=== PATIENT | male | born 1950 | race Caucasian/White ===

== ENCOUNTER 2019-11-28 13:18 | Emergency (ER) | payer MEDICARE, SELFPAY ==
--- NOTE | ~2019-11-28 | XR_ITS ---
EXAMINATION: XR hand LT min 3V DATE: 11/28/2019 13:42 INDICATION: Left hand pain and swelling after pulling brush TECHNIQUE: Posteroanterior, oblique and lateral views of the left hand were obtained. COMPARISON: None. FINDINGS: Alignment is normal. No fracture. Polyarticular osteoarthritis, moderate severity at the triscaphe, f irst carpometacarpal and second distal interphalangeal joints, mild to moderate at the third-fifth di stal interphalangeal and third metacarpophalangeal joints and mild at the remaining interphalangeal a nd metacarpophalangeal joints. Soft tissue swelling dorsal to the mid to distal metacarpals. IMPRESSION: 1. Moderate polyarticular osteoarthritis with typical distribution. No acute osseous abnormality. Reviewed, dictated and finalized at location A. IMPRESSION: 1. Moderate polyarticular osteoarthritis with typical distribution. No acute os seous abnormality.
[2019-11-28 13:40] VITALS: BP 155/86; PULSE 114; RESP 20; TEMP 37.2; O2SAT 96
--- NOTE | 2019-11-28 13:56 | ED.SKABFB ---
HPI - Skin/Abscess/Foreign Bdy General Chief complaint: Extremity Injury, Upper Stated complaint: L/hand injury Time Seen by Provider: 11/28/19 13:37 Source: patient and RN notes reviewed Mode of arrival: ambulatory Limitations: no limitations History of Present Illness HPI narrative: Patient presents today complaining of pain and swelling to the left hand. States he used a chainsaw for many hours yesterday and believes he may have a stress fracture in his hand. Hand started swelling a few hours after he stopped his work. He does have a foreign body embedded in the skin of his fifth metacarpal, but does not believe this is contributing to his symptoms. He is up-to-date on his tetanus vaccine. Denies numbness or tingling in the hand or fingers. He currently rates his pain 03/13 and has been taking aspirin with relief. MD complaint: foreign body and other (Left hand pain) Related Data Home Medications Medication Instructions Recorded Confirmed atorvastatin 20 mg PO DAILY 11/28/19 11/28/19 Allergies Allergy/AdvReac Type Severity Reaction Status Date / Time No Known Allergies Allergy Mild Verified 11/28/19 13:44 Review of Systems Review of Systems: Narrative: CONSTITUTIONAL: Denies body aches, fever, chills, or sweats. EYES: Denies visual changes, redness, or discharge. ENT: Denies rhinorrhea, congestion, sore throat, or otalgia. CARDIOVASCULAR: Denies chest pain, palpitations, or edema. RESPIRATORY: Denies cough or dyspnea. GASTROINTESTINAL: Denies abdominal pain, nausea, vomiting, or diarrhea. GENITOURINARY: Denies dysuria or hematuria. SKIN: Denies rash, itching. + Foreign body to left hand MUSCULOSKELETAL: Denies back pain or myalgia.+ Left hand pain and swelling NEUROLOGIC: Denies headache, numbness, tingling, or weakness. PSYCH: Denies depression or anxiety. [facility] Past Medical History Medical History (Updated 11/28/19 @ 14:04 by Chasidy Morejon, EQUIPMENT SERVICE TECHNICIAN, ) Hypercholesterolemia Comments At time of signature, I have reviewed and agree with nursing past medical, surgical, social and family history unless otherwise noted. Please see nursing chart for further information. There is no relevant family history pertinent to the presenting complaint Exam Narrative: Exam Narrative: GENERAL: Well-appearing, well-nourished, and in no acute distress. HEAD: Normocephalic, atraumatic. EYES: EOMI. No redness or drainage. Conjunctivae normal. ENT: Mucous membranes pink and moist. NECK: Normal AROM. CHEST: No respiratory distress. EXTREMITIES: Left hand: Mild edema and erythema to the area of the fifth metacarpal. Small thorn is visualized just under the skin on the volar aspect of metacarpal. Tenderness to the distal half of the metacarpal. No tenderness to the finger. Full range of motion of the hand. Distal sensation intact. Capillary refill normal. Radial pulse normal. No induration or fluctuance. All other extremities grossly normal. SKIN: Warm, dry, no rash. NEURO: No focal deficits. Alert and oriented x3. Gait steady. PSYCH: Normal affect. No signs of depression or anxiety. Course Vital Signs Vital signs: Vital Signs Temperature 98.9 F 11/28/19 13:40 Pulse Rate 114 H 11/28/19 13:40 Respiratory Rate 20 11/28/19 13:40 Blood Pressure 155/86 H 11/28/19 13:40 Pulse Oximetry 96 11/28/19 13:40 Temperature 98.9 F 11/28/19 13:40 Pulse Rate 114 H 11/28/19 13:40 Respiratory Rate 20 11/28/19 13:40 Blood Pressure 155/86 H 11/28/19 13:40 Pulse Oximetry 96 11/28/19 13:40 Reviewed. Pt has been instructed to follow up with his PCP regarding his elevated blood pressure today. Procedures Foreign Body Removal Foreign Body #1: Foreign Body Removal Date: 11/28/19 Foreign Body Removal Time: 13:57 Time Out Performed: yes Site: left and hand Description of foreign body: other (splinter) Sedation/Analgesia: none Technique: manual remova
== END 2019-11-28 14:07 | disposition home or self-care (01) ==
PROVIDERS: Emergency Provider Nurse Practitioner; PCP Internal Medicine
DX: L03.114 Cellulitis of left upper limb (principal); S66.912A Strain of unspecified muscle, fascia and tendon at wrist and hand level, left hand, initial encounter; S61.442A Puncture wound with foreign body of left hand, initial encounter; W45.8XXA Other foreign body or object entering through skin, initial encounter; W29.3XXA Contact with powered garden and outdoor hand tools and machinery, initial encounter; E78.00 Pure hypercholesterolemia, unspecified
CPT/HCPCS: 73130; 99213; G0463

== ENCOUNTER 2022-03-17 12:19 | Emergency (ER) | payer MEDICARE, SELFPAY ==
[2022-03-17 12:35] VITALS: BP 162/85; PULSE 102; RESP 18; TEMP 36.6; O2SAT 97
--- NOTE | 2022-03-17 12:54 | ED.URI ---
HPI - URI/Sore Throat General Chief Complaint: Upper Respiratory Infection Stated Complaint: sorethroat Time Seen by Provider: 03/17/22 12:54 Source: patient and RN notes reviewed Mode of arrival: ambulatory Limitations: no limitations History of Present Illness HPI Narrative: 72-year-old male presents with concern for scratchy throat, cough, swollen glands. He reports chronic sinus problems. Reports increase in sinus pressure, drainage, foul taste in his mouth, foul breath. He reports a dry scratchy cough. He denies fever, bodies, chills, sweats. Reports he takes nasal spray, denies other intervention. MD elicited complaint: cough and nasal congestion Related Data Home Medications Medication Instructions Recorded Confirmed atorvastatin 20 mg tablet 20 mg PO DAILY 11/28/19 03/17/22 amlodipine 2.5 mg tablet 1 tablet DAILY 03/17/22 03/17/22 losartan 100 mg tablet 1 tablet DAILY 03/17/22 03/17/22 Allergies Allergy/AdvReac Type Severity Reaction Status Date / Time No Known Allergies Allergy Mild Verified 03/17/22 12:52 Review of Systems Review of Systems: CONSTITUTIONAL: Denies malaise, chills, sweats, or fever. EYES: Denies visual changes, redness, or discharge. ENT: Reports rhinorrhea, congestion, sinus pain, ear fullness, swollen glands, and sore throat. CARDIOVASCULAR: Denies chest pain, palpitations, or edema. RESPIRATORY: Reports dry cough. Denies dyspnea. GASTROINTESTINAL: Denies abdominal pain, nausea, vomiting, diarrhea SKIN: Denies rash or itching. MUSCULOSKELETAL: Denies myalgia. NEUROLOGIC: Reports headache. All systems reviewed & are unremarkable except as noted in HPI and below PMFSH Past Medical History Medical History (Updated 03/17/22 @ 13:06 by Grecia Beverly NP) Hypercholesterolemia Comments At time of signature, agree with nursing past medical, surgical, social and family history. There is no relevant family history pertinent to the presenting complaint Exam Narrative: GENERAL: Well-appearing, well-nourished, and in no acute distress. HEAD: Normocephalic EYES: PERRLA, conjunctivae clear ENT: Nares clear, turbinates edematous and erythematous, purulent discharge. Mucous membranes moist. TM pearly chris with dull light reflex bilaterally; no tragal tenderness. Oropharynx erythematous without lesions. Tonsils not enlarged and without exudate, no drooling, no hoarseness, no trismus, uvula midline. NECK: Supple. No lymphadenopathy CHEST: Clear to auscultation, breath sounds equal. No wheezing, rhonchi, rales, or stridor. No respiratory distress, speaks in full sentences. HEART: Regular rate and rhythm. No murmur heard. SKIN: Warm, dry, no rash. NEURO: Alert and oriented x3. PSYCH: Normal mood and affect Course Course Emergency Course: Patient is aware of diagnosis, understands and agrees to treatment plan. Anticipatory guidance given. Patient agrees to follow-up as directed and is aware of reasons to seek care at the emergency department. Portions of this record may have been created with voice recognition software Level of Care: Express Care Visit Vital Signs Vital signs: Reviewed. MDM - URI/Sore Throat MDM Narrative Medical decision making narrative: Differential diagnosis considered: Roberson virus, strep pharyngitis, allergic rhinitis, upper respiratory tract infection, sinusitis, rhinosinusitis, nasopharyngitis. viral pharyngitis, otitis media, otitis externa, pneumonia, bronchitis, viral cough syndrome, viral syndrome, and influenza. Exam findings show no acute concerns or changes; patient is non-toxic appearing and is in no distress. Patient is appropriate for outpatient treatment and follow-up. Lab Data Attestation: I reviewed the patient's lab results. Critical Care Time Critical Care Time Critical Care Time: No Discharge Plan Discharge Clinical Impression: Acute bacterial sinusitis Patient Disposition: Home, Self-Care Condition: Stable Instructions: Antibioti
== END 2022-03-17 13:12 | disposition home or self-care (01) ==
PROVIDERS: Emergency Provider Nurse Practitioner; PCP Internal Medicine
DX: J01.90 Acute sinusitis, unspecified (principal); Z20.822 Contact with and (suspected) exposure to COVID-19; E78.00 Pure hypercholesterolemia, unspecified
CPT/HCPCS: 87081; 87426; 87804; 87880; 99213; C9803; G0463

== ENCOUNTER 2022-06-05 10:02 | Emergency (ER) | payer MEDICARE, SELFPAY ==
[2022-06-05 10:12] VITALS: BP 161/83; PULSE 113; RESP 18; TEMP 36.7; O2SAT 96
--- NOTE | 2022-06-05 10:14 | ED.GENADULT ---
HPI - General Adult General Chief complaint: Upper Respiratory Infection Stated complaint: nasal congestion History of Present Illness HPI narrative: Patient is a 72-year-old male who presents to the [facility] via [facility]OV for evaluation of sinus problem that began 2 weeks ago. Additionally, he reports sinus pain, sinus pressure, fatigue, decreased appetite, and intermittent frontal headaches. Coricidin provides some relief. Bending forward increases sinus pain and pressure. Related Data Home Medications Medication Instructions Recorded Confirmed atorvastatin 20 mg tablet 20 mg PO DAILY 11/28/19 06/05/22 amlodipine 2.5 mg tablet 1 tablet DAILY 03/17/22 06/05/22 losartan 100 mg tablet 1 tablet DAILY 03/17/22 06/05/22 Allergies Allergy/AdvReac Type Severity Reaction Status Date / Time No Known Allergies Allergy Mild Verified 06/05/22 10:14 Review of Systems Review of Systems: Denies fever, chills, sweats, malaise, poor p.o. intake, recent weight loss, severe persistent headache, LOC, dizziness, lymphadenopathy, vision changes, ear pain/drainage, nasal drainage/congestion, difficulty swallowing, hoarseness, sore throat, abdominal pain, nausea, vomiting, diarrhea, cough, shortness of breath, chest pain, heart palpitations/murmurs. COUNT INCLUDES THE [facility] Past Medical History Medical History Hypercholesterolemia Comments I have reviewed and agree with the patient's past medical, surgical, social, and family hx as documented by the RN. There is no relevant family history pertinent to the presenting complaint. Exam Narrative: GENERAL: Well-appearing, well-nourished, and in no acute distress. HEAD: Normocephalic, atraumatic. Moderate frontal and maxillary sinus tenderness appreciated upon palpation. No evidence of facial swelling. EYES: PERRLA and EOMI. No evidence of erythema, swelling, or drainage. ENT: Bilateral external ears and ear canals normal. Bilateral TMs are normal.No TM perforation. Nares clear, no rhinorrhea or epistaxis. Bilateral turbinates are moderately edematous. Nares are mucous membranes moist and pink. Uvula is midline without erythema and swelling. No evidence of petechial rash, cobblestoning, lesions, ulcers, erythema, swelling, exudates, peritonsillar abscess, tenting, or drooling. Breath odor and voice normal. NECK: Supple. No Lymphadenopathy or nuchal rigidity appreciated. CHEST: Bilateral lung ferrera are clear to auscultation. No respiratory distress. No evidence of cough or pleuritic cp upon examination. HEART: Tachycardia with 113. Regular rhythm. No murmur, gallop, or rub heard. EXTREMITIES: Normal range of motion. No edema. SKIN: Warm, dry, no rash. NEURO: No focal deficits. Alert and oriented x3. Course Course Level of Care: Express Care Visit Vital Signs Vital signs: Vital Signs Temperature 98.1 F 06/05/22 10:12 Pulse Rate 113 H 06/05/22 10:12 Respiratory Rate 18 06/05/22 10:12 Blood Pressure 161/83 H 06/05/22 10:12 Pulse Oximetry 96 06/05/22 10:12 Oxygen Delivery Room Air 06/05/22 10:12 Temperature 98.1 F 06/05/22 10:12 Pulse Rate 113 H 06/05/22 10:12 Respiratory Rate 18 06/05/22 10:12 Blood Pressure 161/83 H 06/05/22 10:12 Pulse Oximetry 96 06/05/22 10:12 Oxygen Delivery Room Air 06/05/22 10:12 Medical Decision Making Vital Signs Vital Signs: Vital Signs Temperature 98.1 F 06/05/22 10:12 Pulse Rate 113 H 06/05/22 10:12 Respiratory Rate 18 06/05/22 10:12 Blood Pressure 161/83 H 06/05/22 10:12 Pulse Oximetry 96 06/05/22 10:12 Oxygen Delivery Room Air 06/05/22 10:12 Temperature 98.1 F 06/05/22 10:12 Pulse Rate 113 H 06/05/22 10:12 Respiratory Rate 18 06/05/22 10:12 Blood Pressure 161/83 H 06/05/22 10:12 Pulse Oximetry 96 06/05/22 10:12 Oxygen Delivery Room Air 06/05/22 10:12 Critical Care Time Critical Care Time Critical Care
== END 2022-06-05 10:35 | disposition home or self-care (01) ==
PROVIDERS: Emergency Provider Nurse Practitioner Family; PCP Internal Medicine
DX: J01.90 Acute sinusitis, unspecified (principal); E78.00 Pure hypercholesterolemia, unspecified
CPT/HCPCS: 99213; G0463

== ENCOUNTER 2023-08-19 11:12 | Emergency (ER) | payer MEDICARE, SELFPAY ==
[2023-08-19 11:21] VITALS: BP 148/90; PULSE 111; RESP 18; TEMP 36.4; O2SAT 97
--- NOTE | 2023-08-19 11:25 | ED.URI ---
HPI - URI/Sore Throat General Chief Complaint: Upper Respiratory Infection Stated Complaint: Sinus Time Seen by Provider: 08/19/23 11:25 Source: patient Mode of arrival: ambulatory Limitations: no limitations History of Present Illness HPI Narrative: Raul is a 73-year-old male patient presenting to the clinic today with complaints of nasal congestion, sinus pressure, headache, body aches, and chills x2 days. He denies any known fever. Denies any chest pain or shortness of breath. No known exposure to anyone with COVID, influenza, or strep MD elicited complaint: cough, rhinorrhea, nasal congestion, sinus pain and other (Chills and body aches) Related Data Home Medications Medication Instructions Recorded Confirmed atorvastatin 20 mg tablet 20 mg PO DAILY 11/28/19 06/05/22 amlodipine 2.5 mg tablet 1 tablet DAILY 03/17/22 06/05/22 losartan 100 mg tablet 1 tablet DAILY 03/17/22 06/05/22 Allergies Allergy/AdvReac Type Severity Reaction Status Date / Time No Known Allergies Allergy Mild Verified 06/05/22 10:14 Review of Systems Review of Systems: Pertinent positives per HPI. Patient denies any fever, chills, rash, headache, visual changes, dizziness, shortness of breath, chest pain, palpitations, nausea, vomiting, diarrhea, constipation, abdominal pain, or any urinary issues. [facility] Past Medical History Medical History Hypercholesterolemia Comments At the time of my signature, I reviewed and agree with the nursing past medical, surgical, social, and family history. There is no relevant family history pertinent to the patient complaint. Exam Narrative: General: Well-developed, well nourished, in no apparent distress Head: Normocephalic, atraumatic Eyes: Pupils equally round and reactive to light bilaterally, EOM intact, sclera and conjunctive clear, no discharge, lids normal Ears: TMs intact and clear, ear canals clear, no drainage, grossly hearing normal. Nose: Nares patent, clear nasal discharge, moderate inflammation, no sinus tenderness. Mouth: Oral pharynx without lesions or masses, good dentition, MMM. Neck: Supple, trachea midline, no enlargement of anterior or posterior cervical nodes, no thyroid masses or goiter palpable. Cardio: Regular rate and rhythm, s1 and s2 normal, no murmur appreciated. Resp: Clear to auscultation bilaterally, no rhonchi, rales, wheezing or rubs Course Course Emergency Course: Portions of this record may have been created with voice recognition software. Level of Care: Express Care Visit Vital Signs Vital signs: Vital Signs Temperature 36.4 C 08/19/23 11:21 Pulse Rate 111 H 08/19/23 11:21 Respiratory Rate 18 08/19/23 11:21 Blood Pressure 148/90 H 08/19/23 11:21 Pulse Oximetry 97 08/19/23 11:21 Oxygen Delivery Room Air 08/19/23 11:21 Temperature 36.4 C 08/19/23 11:21 Pulse Rate 111 H 08/19/23 11:21 Respiratory Rate 18 08/19/23 11:21 Blood Pressure 148/90 H 08/19/23 11:21 Pulse Oximetry 97 08/19/23 11:21 Oxygen Delivery Room Air 08/19/23 11:21 Vital signs reviewed MDM - URI/Sore Throat MDM Narrative Medical decision making narrative: At the time of visit patient is resting comfortably on the exam table. Patient appears to be nontoxic. COVID and influenza testing was performed. COVID testing was negative. Influenza testing was positive for influenza A. Will send in prescription for Tamiflu. Supportive measures were discussed with the patient and they voiced understanding discharge instructions and agrees to treatment plan. Return precautions reviewed Differential Diagnosis Differential diagnosis: Likely upper respiratory infection, otitis media, sinusitis, viral infection, bronchitis, influenza, pharyngitis and other (COVID) Discharge Plan Discharge Clinical Impression: Influenza A Patient Disposition: Home, Self-Care Condition: Stable
== END 2023-08-19 11:51 | disposition home or self-care (01) ==
PROVIDERS: Emergency Provider Nurse Practitioner Family; PCP Internal Medicine
DX: J10.1 Influenza due to other identified influenza virus with other respiratory manifestations (principal); Z20.822 Contact with and (suspected) exposure to COVID-19; E78.00 Pure hypercholesterolemia, unspecified
CPT/HCPCS: 87426; 87804; 99213; C9803; G0463

== ENCOUNTER 2024-12-08 14:57 | Emergency (ER) | payer MEDICARE, SELFPAY ==
--- NOTE | 2024-12-08 14:59 | ED_ITS ---
HPI - Skin/Abscess/Foreign Bdy General Chief complaint: Skin/Abscess/Foreign Body Stated complaint: rash Time Seen by Provider: 12/08/24 14:59 Source: patient Mode of arrival: ambulatory Limitations: no limitations History of Present Illness HPI narrative: Raul is a 74-year-old male patient presenting to the clinic today with complaints of a rash x5 days. States he has a itchy raised rash on his back, chest, and abdomen. Rash is not painful. He reports no fevers, chills, body aches. is concerned that he may have a staph infection. Denies any changes in soaps, detergents, lotions, foods, or medications. No one else at home has this rash. Related Data Home Medications ?Medication ?Instructions ?Recorded ?Confirmed ?Last Taken ?Type atorvastatin 20 mg tablet 20 mg PO DAILY 11/28/19 06/05/22 Unknown History amlodipine 2.5 mg tablet 1 tablet DAILY 03/17/22 06/05/22 Unknown History losartan 100 mg tablet 1 tablet DAILY 03/17/22 06/05/22 Unknown History Allergies Allergy/AdvReac Type Severity Reaction Status Date / Time No Known Allergies Allergy Mild Verified 12/08/24 15:01 Review of Systems Review of Systems: Pertinent positives per HPI. Patient denies any fever, chills, headache, visual changes, dizziness, cough, shortness of breath, chest pain, palpitations, nausea, vomiting, diarrhea, constipation, abdominal pain, or any urinary issues. [facility] Past Medical History Medical History Hypercholesterolemia Comments At the time of my signature, I reviewed and agree with the nursing past medical, surgical, social, and family history. There is no relevant family history pertinent to the patient complaint. Exam Narrative: General: Well-developed, well nourished, in no apparent distress Head: Normocephalic, atraumatic. Cardio: Regular rate and rhythm, s1 and s2 normal, no murmur appreciated. Resp: Clear to auscultation bilaterally, no rhonchi, rales, wheezing or rubs. Integumentary: [place], warm, and dry, intact without lesion, red raised itchy scaly rash to back, abdomen, and chest. Some of the area is have some yellow crusting/scabbing. Course Course Emergency Course: Portions of this record may have been created with voice recognition software. Level of Care: Express Care Visit Vital Signs Vital signs: Vital Signs Temperature 36.6 C 12/08/24 15:22 Pulse Rate 101 H 12/08/24 15:22 Respiratory Rate 18 12/08/24 15:22 Blood Pressure 155/79 H 12/08/24 15:22 Pulse Oximetry 97 12/08/24 15:22 Oxygen Delivery Room Air 12/08/24 15:22 Temperature 36.6 C 12/08/24 15:22 Pulse Rate 101 H 12/08/24 15:22 Respiratory Rate 18 12/08/24 15:22 Blood Pressure 155/79 H 12/08/24 15:22 Pulse Oximetry 97 12/08/24 15:22 Oxygen Delivery Room Air 12/08/24 15:22 Vital signs reviewed MDM - Skin/Abscess/Foreign Bdy MDM Narrative Medical decision making narrative: At the time of visit patient is resting comfortably on the exam table. Patient appears to be nontoxic. Plan: I suspect patient has dermatitis but will also cover him for secondary infection. Prescription for doxycycline and prednisone was sent to the pharmacy. Supportive measures were discussed with the patient and they voiced understanding discharge instructions and agrees to treatment plan. Return precautions reviewed Differential Diagnosis Differential diagnosis: Likely abscess of skin or subcutaneous tissue, viral exanthem, dermatophytosis, urticaria, herpes zoster, allergic reaction to drug, cellulitis, eczema, insect bites, impetigo and contact dermatitis Discharge Plan Discharge Clinical Impression: Dermatitis Patient Disposition: Home, Self-Care Condition: Stable Instructions: Antibiotic Form, Dermatitis (ED) Additional Instructions: Take prednisone as directed Take doxycycline as prescribed Avoid hot showers Avoid scratching and this causes rash to spread May take benadryl 25-50mg every 6 hours as needed for itching. Follow up with your PCP in 3-5 days if symptoms persist or sooner if they worsen Go to the Emergency Room if symptoms worsen- fever, rash spreading with treatment, shortness of breath, tongue swelling, drooling, or chest pain Patient Language: Luxembourgish Prescriptions: New doxycycline monohydrate 100 mg capsule 100 mg PO BID 10 Days Qty: 20 0RF prednisone 10 mg tablet 10 mg PO DAILY Qty: 30 0RF Rx Instructions: 60mg po daily on day 1, 40mg po daily on days 2-4, 30mg po daily on days 5-6, 20mg po daily on days 7-8, 10mg po daily on days 9-10 No Action atorvastatin 20 mg Tablet 20 mg PO DAILY amlodipine 2.5 mg tablet 1 tablet DAILY losartan 100 mg tablet 1 tablet DAILY Follow-up/Referrals: Ayah,Mayur Brown MD [Primary Care Provider] - Time of Disposition: 15:34 Quality NIHSS Nursing Documentation ED NIHSS nursing documentation: reviewed/agree
--- OUTSIDE RECORDS SUMMARY | 2024-12-08 15:00 | XMS_ITS | Referral Summary ---
Author Organization [facility] Address [address] [place] [address] Care Team Providers Care Quality Improvement Manager Name Role Phone Mayur Poon MD Primary Care Provider Allergies No known active allergies Medications losartan (COZAAR) 100 mg tablet TAKE 1 TABLET BY MOUTH EVERY DAY 90 tablet 3 4 Active atorvastatin (LIPITOR) 20 mg tablet TAKE 1 TABLET BY MOUTH EVERY DAY AT NIGHT 90 tablet 2 4 Active sildenafiL (VIAGRA) 25 mg tablet TAKE 1 TABLET BY MOUTH NEEDED FOR ERECTILE DYSFUNCTION 27 tablet 2 4 Active amLODIPine (NORVASC) 2.5 mg tablet TAKE 1 TABLET BY MOUTH EVERY DAY 90 tablet 3 5 Active Active Problems Problem Noted Date Diagnosed Date Mixed hyperlipidemia 01/15/2024 Assessment & Plan (01/15/2024 12:38 PM CDT): Continue medication labs next visit Routine general medical exam ination at a health care facility 06/22/2022 Assessment & Plan (06/22/2022 9:53 AM CDT): Labs, including 1x Hep C screening & PSA Goal of 150 min/weekly of moderate intensity activity Limit 2 EtOH drinks/daily Colonoscopy due 2026 Current on vision and dental exam Due for Shingrix, otherwise IUTD Essential hypertension 05/17/2021 Assessment & Plan (01/15/2024 12:38 PM CDT): Stable doing well at this time. Continue medication for target directed therapy Assessment & Plan (05/17/2021 3:40 PM CDT): EKG today Repeat CBC/CMP Carotid doppler and stress ECHO S/S to return to ED reviewed Resolved Problems Problem Noted Date Diagnosed Date Resolved Date Cough 05/17/2021 06/22/2022 Assessment & Plan (05/17/2021 3:40 PM CDT): Chest xray today Umbilical hernia without obs truction and without gangrene 09/10/2020 05/17/2021 Overview (09/10/2020): Added automatically from request for surgery [id number] Umbilical hernia with obstru ction, without gangrene 08/04/2020 05/17/2021 Immunizations Immunization Administration Dates Next Due Covaxin Sars-cov-2 Vaccination 06/04/2023 Influenza, Trivalent, Adjuvanted, Intramuscular 05/16/2018 Influenza, Trivalent, High D ose, Split, Preservative Free, Intramuscular 06/28/2017 Influenza, Unspecified 06/15/2022 Pfizer SARS-CoV-2 Monovalent Vaccination (12+ Yrs) PURPLE 11/10/2020,10/13/2020 Pfizer Sars-Cov-2 Bivalent Vaccination (12+ YRS) 06/15/2022 Pneumococcal Conjugate PCV 13 06/28/2017 Pneumococcal Polysaccharide PPV23 07/06/2018 Tdap 01/11/2015 ZOSTER LIVE 06/25/2014 ZOSTER Recombinant 11/07/2022,09/07/2022 Social History Tobacco Use Types Packs/Day Years Used Date Smoking Tobacco: Former Cigarettes Q uit: 09/10/2002 Smokeless Tobacco: Never Tobacco Cessation:Counseling Given: Not Answered Alcohol Use Standard Drinks/Week Comments Yes 6 (1 standard drink = 0.6 oz pur e alcohol) DAILY AUDIT-C Answer Date Recorded Q1: How often do you have a drink containing alcohol? 4 or more times a week 05/17/2021 Q2: How many drinks containi ng alcohol do you have on a typical day when you are drinking? 5 or 6 Q3: How often do you have si x or more drinks on one occasion? Daily or almost daily 05/17/2021 PHQ-2 Answer Date Recorded PHQ-2 Total Score (If total score is 3 or more points, staff should administer the PHQ-9) 0 07/20/2024 Sex and Gender Information Value Date Recorded Sex Assigned at Not on file Legal Sex Male 4:08 AM PROSTHETIC AIDE Gender Identity Not on file Sexual Orientation Straight 09/08/2020 11 :15 AM PROSTHETIC AIDE Last Filed Vital Signs Vital Sign Reading Time Taken Comments Blood Pressure 140/82 07/24/2024 11:01 AM PROSTHETIC AIDE Pulse 106 07/24/2024 10:29 AM PROSTHETIC AIDE Temperature 37.2 C (98.9 F) 05/09/2021 2:46 PM CDT Respiratory Rate 16 05/17/2021 3:20 PM CDT Oxygen Saturation 97% 07/24/2024 10:29 AM PROSTHETIC AIDE Inhaled Oxygen Concentration - - Weight 102 kg (224 lb 12.8 oz) 07/24/2024 10:29 AM PROSTHETIC AIDE Height 180.3 cm (5' 11 ) 07/24/2024 10:29 AM PROSTHETIC AIDE Body Mass Index 31.35 07/24/2024 10:29 AM PROSTHETIC AIDE Plan of Treatment Not on file Procedures Procedure Name Priority Date/Time Associated Diagnosis Comments PSA SCREEN Routine 07/24/2024 11:33 AM PROSTHETIC AIDE Screening for prostate cancer Essential hypertension Routine general medical examination at a health care facility Mixed hyperlipidemia HEPATITIS C ANTIBODY Routine 06/22/2022 10:19 AM CDT Need for hepatitis C screening test COLONOSCOPY REPORT 01/13/2017 from Last 3 Months or Most Recently Relevant to Health Maintenance Results * PSA screen (07/24/2024 11:33 AM PROSTHETIC AIDE) PSA-Total 3.12 <=6.20 ng/mL Comment: Interpretive Data AGE SEX REFERENCE INTERVAL 0 minutes-150 years Female None 0 minutes-49 years Male None 50-59 years Male 0-3.90 60-69 years Male 0-5.40 70-79 years Male 0-6.20 80-150 years Male 0-6.20 The Roberto PSA Total assay procedure was used. Results from different manufacturers or methods may not be comparable. Serial testing should be performed using the same method. Current interpretive data last revised 22. Blood 07/24/2024 11:3 3 AM PROSTHETIC AIDE 07/24/2024 12:07 PM PROSTHETIC AIDE us Mayur Poon MD LAB BLOOD ORDERABLES Final Re sult [facility] Department [place] [address] * Hepatitis C antibody (06/22/2022 10:19 AM CDT) Pathologist [facility] Hep C Ab <0.1 0.0 - 0.9 s/co ratio [facility] - 01 Comment: Negative: < 0.8 Indeterminate: 0.8 - 0.9 Positive: > 0.9 HCV antibody alone does not differentiate between previous resolved infection and active infection. The CDC and current clinical guidelines recommend that a positive HCV antibody result be followed up with an HCV RNA test to support the diagnosis of acute HCV infection. [facility] Hepatitis C Virus (HCV) RNA, Diagnosis, FABIAN ([id number]) and Hepatitis C Virus (HCV) Antibody with reflex to Quantitative Real-time PCR ([id number]). Blood 06/22/2022 10:1 9 AM CDT 06/22/2022 Narrative [facility] - 06/23/2022 8:16 AM CDT Performed at: 01 - Lab[address] [id number] Patient Relations Liaison: Maicol Hendrickson PhD, Phone: [phone] us Pooja Busch INVESTIGATIVE REPORTER LAB MICROBIOLOGY - GENER AL ORDERABLES Final Result [facility] - 01 * COLONOSCOPY REPORT (01/13/2017) Anatomical Region Laterality Modality Other Narrative 01/13/2017 Ordered by an unspecified provider. us Historical Provider MD LOW PROCEDURE ORDERABLES F inal Result from Last 3 Months or Most Recently Relevant to Health Maintenance Insurance MEDICARE [facility] MEDICARE [facility] Member Subscriber Plan / Payer ( fective 2018-Present) Name:Raul Cantor Relation to Subscriber:Self Name:Raul Cantor Payer ID:[id number] Group ID:Not on file Type:COMMERCIAL Address: [facility] [id number] [id number] MEDICARE [facility] MEDICARE Care Teams Quality Improvement Manager Relationship Specialty Start Date End Date Mayur Poon MD [address] [address] PCP - General Internal Medicine 06/30/20
--- OUTSIDE RECORDS SUMMARY | 2024-12-08 15:00 | XMS_ITS | Clinical Summary ---
Author Organization [facility] Address [address] [place] [address] Care Team Providers Care Electronics Utility Worker Name Role Phone Mayur Poon MD Primary Care Provider [phone] Allergies No known active allergies Medications losartan [...] (09/10/2020): Added automatically from request for surgery [id number] Umbilical hernia with obstru ction, without gangrene [...] 01/11/2015 ZOSTER LIVE 06/25/2014 ZOSTER Recombinant 11/07/2022,09/07/2022 Surgical History Surgery Date Site/Laterality Comments UMBILICAL HERNIA REPAIR 09/04/2020 - 09/03/2021 Medical History Medical History Date Comments Hyperlipidemia Hypertension Umbilical hernia without obs truction and without gangrene 09/10/2020 Added automatically from req uest for surgery [id number] Family History Medical History Relation Name Comments Heart attack Brother Heart disease Father Stroke Mother 70's Breast cancer Sister Anesthesia problems Neg Hx Relation Name Status Comments Brother Father Mother Sister Social History Tobacco Use Types Packs/Day Years [...] on file Legal Sex Male 4:08 AM SENIOR MANAGER Gender Identity Not on file Sexual Orientation Straight 09/08/2020 11 :15 AM SENIOR MANAGER Obstetrics History Last Filed Vital Signs Vital Sign Reading Time Taken Comments Blood Pressure 140/82 07/24/2024 11:01 AM SENIOR MANAGER Pulse 106 07/24/2024 10:29 AM SENIOR MANAGER Temperature 37.2 C (98.9 F) 05/09/2021 2:46 PM CDT Respiratory Rate 16 05/17/2021 3:20 PM CDT Oxygen Saturation 97% 07/24/2024 10:29 AM SENIOR MANAGER Inhaled Oxygen Concentration - - Weight 102 kg (224 lb 12.8 oz) 07/24/2024 10:29 AM SENIOR MANAGER Height 180.3 cm (5' 11 ) 07/24/2024 10:29 AM SENIOR MANAGER Body Mass Index 31.35 07/24/2024 10:29 AM SENIOR MANAGER Plan of Treatment Health Maintenance Due Date Last Done Comments Hepatitis B Screening 02/03/1968 Abdominal Aortic Aneurysm (A AA) Screen 02/03/2017 Covid-19 Vaccine (2023-2 5 season) 2024 06/04/2023, 06/15/2022, 11/10/2020, Additional history exists DTaP/Tdap/Td Vaccine (2 - Td or Tdap) 01/11/2025 01/11/2015 Influenza Vaccine (Season Ended) 2025 06/04/2023, 06/15/2022, 05/16/2018, Additional history exists Depression Screening 07/24/2025 07/24/2024, 06/29/2023, 06/22/2022 Fall Risk Assessment 07/24/2025 07/24/2024, 06/29/2023, 06/22/2022, Additional history exists Well Visit 65+ 07/24/2025 07/24/2024, 06/05, 06/22/2022 Colon Cancer Screening-Colonoscopy 01/13/2027 01/13/2017 Colon Cancer Screening-CT Colonography Discontinued 01/13/2017 Colon Cancer Screening-DNA Stool Discontinued 01/14/20 Colon Cancer Screening-FIT Discontinued 01/13/2017 Colon Cancer Screening-Sigmoidoscopy Discontinued 01/13/2017 Pneumococcal vaccine 65+ Completed 07/06/2018, 06/05 Hepatitis C Screening Completed 06/22/2022 Zoster Vaccine Completed 11/07/2022, 12/2022, 06/25/2014 Prostate Cancer Screening-PSA Discontinued , 06/29/2023, 06/22/2022, Additional history exists Procedures Procedure Name Priority Date/Time Associated Diagnosis Comments PSA SCREEN Routine 07/24/2024 11:33 AM SENIOR MANAGER Screening for prostate cancer Essential hypertension Routine general medical examination at a health care facility Mixed hyperlipidemia HEPATITIS C ANTIBODY Routine 06/22/2022 10:19 AM CDT Need for hepatitis C screening test COLONOSCOPY REPORT 01/13/2017 from Last 3 Months or Most Recently Relevant to Health Maintenance Results * PSA screen (07/24/2024 11:33 AM SENIOR MANAGER) PSA-Total 3.12 <=6.20 ng/mL Comment: Interpretive Data [...] revised 22. Blood 07/24/2024 11:3 3 AM SENIOR MANAGER 07/24/2024 12:07 PM SENIOR MANAGER us Mayur Poon MD LAB BLOOD ORDERABLES Final Re sult Performing Organization Address City/[facility]/ZIP Co de Phone Number [facility] Department [place] [address] * Hepatitis C antibody (06/22/2022 10:19 AM CDT) [facility] Hep C Ab <0.1 0.0 - 0.9 [...] support the diagnosis of acute HCV infection. [facility] Hepatitis C Virus (HCV) RNA, Diagnosis, FABIAN ([id number]) and Hepatitis C Virus (HCV) Antibody with reflex to Quantitative Real-time PCR ([id number]). Blood 06/22/2022 10:1 9 AM CDT 06/22/2022 Narrative [facility] - 06/23/2022 8:16 AM CDT Performed at: - [address] [id number] Counter Waitress/Waiter: Maicol Hendrickson PhD, Phone: [phone] us Pooja Busch NP LAB MICROBIOLOGY - GENER AL ORDERABLES Final Result Performing Organization Address City/[facility]/ZIP Co de Phone Number [facility] - 01 * COLONOSCOPY REPORT (01/13/2017) Anatomical Region Laterality Modality Other Narrative 01/13/2017 Ordered by an unspecified provider. Historical Provider GI PROCEDURE ORDERABLES F inal Result from Last 3 Months or Most Recently Relevant to Health Maintenance Insurance MEDICARE Member Subscriber Plan / Payer ( fective 2017-Present) Name:Raul Cantor Member ID:[id number] Relation to Subscriber:Self Name:Raul Cantor Subscriber ID:[id number] Payer ID:[id number] Group ID:Not on file Type:MEDICARE TRADITIONAL Address: [address] [address] [facility] MEDICARE Member Subscriber Plan / Payer ( fective 2017-Present) Name:Raul Cantor Member ID:[id number] Relation to Subscriber:Self Name:Raul Cantor Subscriber ID:[id number] Payer ID:[id number] Group ID:Not on file Type:MEDICARE TRADITIONAL Address: [address] [address] [facility] MEDICARE Member Subscriber Plan / Payer (Ef fective 2018-Present) Name:Raul Cantor Member ID:[id number] Relation to Subscriber:Self Name:Raul Cantor Subscriber ID:[id number] Payer ID:[id number] Group ID:Not on file Type:MEDICARE TRADITIONAL Address: [address] [address] [facility] MEDICARE Member Subscriber Plan / Payer (Ef fective 2018-Present) Name:Raul Cantor Member ID:[id number] Relation to Subscriber:Self Name:Raul Cantor Subscriber ID:[id number] Payer ID:[id number] Group ID:Not on file Type:MEDICARE TRADITIONAL Address: [address] [address] Care Teams Electronics Utility Worker Relationship Specialty Start Date End Date Mayur Poon MD [address] [facility] [address], [place] [address] PCP - General Internal Medicine 06/30/20
[2024-12-08 15:22] VITALS: BP 155/79; PULSE 101; RESP 18; TEMP 36.6; O2SAT 97
== END 2024-12-08 15:40 | disposition home or self-care (01) ==
PROVIDERS: Emergency Provider Nurse Practitioner Family; PCP Internal Medicine
DX: L30.9 Dermatitis, unspecified (principal); E78.00 Pure hypercholesterolemia, unspecified
CPT/HCPCS: 99213; G0463